=== PATIENT | female | born 1995 | race African-American/Black ===

== ENCOUNTER 2017-01-10 12:52 | Observation (INO) | payer MEDICAID ==
[~2017-01-10] VITALS: Ht 170.2 cm; Wt 105.0 kg
[~2017-01-10 12:52] MED LIST: ORTHTAB2 PO
[2017-01-10 12:55] VITALS: BP 128/95; PULSE 63; RESP 14; TEMP 98.8; O2SAT 100
[2017-01-10] MEDS ORDERED: SODIUM CHLORIDE 0.9% FLUSH 10 ML FLUSH IVF PRN (13:30)
--- NOTE | 2017-01-10 13:32 | PD ---
HPI Chief Complaint: Neuro Symptoms/ Deficits Time Seen by Provider: 13:15 Travel History International Travel<30 days: No Contact w/Intl Traveler<30days: No Traveled to known affect area: No History of Present Illness HPI This is a 21-year-old female who was referred here by white sugar boiler for evaluation of bilateral papilledema, left cranial nerve palsy. The patient reports that for the past 10-11 days she has had a stiff neck. Over the past 4- 5 days she has developed some numbness in her right second third and fourth fingers. She has developed some diplopia in the left eye over the past 2-3 days. She was referred today to Dr. Aime almanzar white sugar boiler who identified a left sixth cranial nerve palsy along with bilateral optic disks edema. She was referred here for further evaluation. The patient is denying any headache, fevers or chills, rash, upper respiratory symptoms, nausea or vomiting, abdominal pain. She has no other complaints at this time. PFSH Past Medical History Asthma: Yes (as a child) ?: Not : 0 Para: 0 Social History Alcohol Use: Yes Tobacco Use: No (patient admits to marijuana and using alcohol during this time ) Substance Use: Yes (no) Allergies-Medications (Allergen,Severity, Reaction): Coded Allergies: No Known Allergies (Unverified , 10/20/15) Reported Meds & Prescriptions Reported Meds & Active Scripts Active Ortho Tri-Cyclen (Norgestimate-Ethinyl Estradiol) Cyclen Tab 1 Tab PO DAILY Review of Systems Except as stated in HPI: all other systems reviewed are Neg Physical Exam Narrative GENERAL: Well-developed well-nourished female in no acute distress SKIN: Warm and dry. HEAD: Atraumatic. Normocephalic. EYES: Pupils equal and round dilated. Left eye esotropia is present. Visual acuity performed at ophthalmology office: od 20/25, os 20/200. ENT: No nasal bleeding or discharge. Mucous membranes pink and moist. NECK: Trachea midline. No JVD. CARDIOVASCULAR: Regular rate and rhythm. No murmur appreciated. RESPIRATORY: No accessory muscle use. Clear to auscultation. Breath sounds equal bilaterally. GASTROINTESTINAL: Abdomen soft, non-tender, nondistended. Hepatic and splenic margins not palpable. MUSCULOSKELETAL: No obvious deformities. No clubbing. No cyanosis. No edema. NEUROLOGICAL: Awake and alert. No obvious cranial nerve deficits. Motor grossly within normal limits. Normal speech. Normal finger to nose, rapid alternating movements, heel to sequeira. No clonus, negative Babinski, 5 out of 5 muscle strength in the upper and lower extremities. 1+ Achilles/patellar reflex bilaterally. Negative Kernig's, negative Brudzinski's. Neck is mildly stiff with flexion and extension. PSYCHIATRIC: Appropriate mood and affect; insight and judgment normal. Data Data Last Documented VS Vital Signs Date Time Temp Pulse Resp B/P Pulse Ox O2 Delivery O2 Flow Rate FiO2 01/10/17 13:38 98 Room Air 01/10/17 12:55 98.8 63 14 128/95 Orders Electrocardiogram (01/10/17 13:25) Prothrombin Time / Inr (Pt) (01/10/17 13:25) Act Partial Throm Time (Ptt) (01/10/17 13:25) Complete Blood Count With Diff (01/10/17 13:25) Comprehensive Metabolic Panel (01/10/17 13:25) Ct Brain W/O Iv Contrast(Rout) (01/10/17 13:25) Ecg Monitoring (01/10/17 13:25) Iv Access Insert/Monitor (01/10/17 13:25) Oximetry (01/10/17 13:25) Sodium Chloride 0.9% Flush (Ns Flush) (01/10/17 13:30) Ed Urine Pregnancytest Poc (01/10/17 13:25) Vital Signs (Adult) .On admission (01/10/17 14:39) Notify Radiology (01/10/17 14:39) Lumbar Puncture (01/10/17 ) Notify Radiology (01/10/17 14:44) Csf Cell Count + Differential (01/10/17 14:44) Glucose, Csf (01/10/17 14:44) Total Protein, Csf (01/10/17 14:44) Csf Culture And Gram Stain (01/10/17 14:44) Mri Brain W/O Contrast (01/10/17 ) Consult Neurology (01/10/17 ) Admit Order (Ed Use Only) (01/10/17 15:32) Labs Laboratory Tests Test 01/10/17 13:35 White Blood Count 10.2 TH/MM3 Red Blood Count 4.54 MIL/MM3 Hemoglobin 12.2 GM/DL Hematocrit 38.3 % Mean Corpuscular Volume 84.3 FL Mean Corpuscular Hemoglobin 27.0 PG Mean Corpuscular Hemoglobin 32.0 % Concent Red Cell Distribution Width 14.2 % Platelet Count 433 TH/MM3 Mean Platelet Volume 7.1 FL Neutrophils (%) (Auto) 52.6 % Lymphocytes (%) (Auto) 26.9 % Monocytes (%) (Auto) 9.8 % Eosinophils (%) (Auto) 10.0 % Basophils (%) (Auto) 0.7 % Neutrophils # (Auto) 5.4 TH/MM3 Lymphocytes # (Auto) 2.7 TH/MM3 Monocytes # (Auto) 1.0 TH/MM3 Eosinophils # (Auto) 1.0 TH/MM3 Basophils # (Auto) 0.1 TH/MM3 CBC Comment DIFF FINAL Differential Comment Prothrombin Time 10.8 SEC Prothromb Time International 1.0 RATIO Ratio Activated Partial 28.2 SEC Thromboplast Time Sodium Level 137 MEQ/L Potassium Level 3.7 MEQ/L Chloride Level 105 MEQ/L Carbon Dioxide Level 26.2 MEQ/L Anion Gap 6 MEQ/L Blood Urea Nitrogen 8 MG/DL Creatinine 0.79 MG/DL Estimat Glomerular Filtration 112 ML/MIN Rate Random Glucose 91 MG/DL Calcium Level 9.5 MG/DL Total Bilirubin 0.7 MG/DL Aspartate Amino Transf 12 U/L (AST/SGOT) Alanine Aminotransferase 17 U/L (ALT/SGPT) Alkaline Phosphatase 62 U/L Total Protein 8.5 GM/DL Albumin 3.9 GM/DL MDM Medical Decision Making Medical Screen Exam Complete: Yes Emergency Medical Condition: Yes Medical Record Reviewed: Yes Interpretation(s) Lab work unremarkable CT brain unremarkable Differential Diagnosis Pseudotumor cerebri, intracranial mass, meningitis, multiple sclerosis Narrative Course This is a 21-year-old female who for 1.5 weeks who has had stiff neck, 5-6 days of right hand numbness, 2-3 days of left eye double vision. She was found to have bilateral 2+ palpable edema as well as left cranial nerve palsy at the office of white sugar boiler Dr. Salomon today. Plan is for basic lab work, CT of the brain, neurology consultation. Laboratory and imaging studies been reviewed and found to be unremarkable. Therefore lumbar puncture has been ordered. I discussed with Dr. Archuleta, the neurologist on-call, who agrees with lumbar puncture, MRI of the brain, admission for further evaluation. A consultation has been placed to him. Discussed with Dr. Smith who is agreeable with admission. Diagnosis Primary Impression: Papilledema of both eyes Additional Impression: Palsy of left sixth cranial nerve on examination Admitting Information Admitting Physician Requests: Placido Salmeron Jan 10, 2017 13:31
[2017-01-10 13:51] LABS: AUTOMATED NEUTROPHIL # 5.4 TH/MM3 (1.8-7.7); BASOPHIL # 0.1 TH/MM3 (0-0.2); BASOPHIL % 0.7 % (0.0-2.0); HEMATOCRIT 38.3 % (35.0-46.0); HEMO FLAGS DIFF FINAL; LYMPH % 26.9 % (9.0-44.0); LYMPHOCYTE # 2.7 TH/MM3 (1.0-4.8); MEAN CELL VOLUME 84.3 FL (80.0-100.0); MONO % 9.8 % (0.0-8.0); NEUT % 52.6 % (16.0-70.0); PLATELET COUNT 433 TH/MM3 (150-450); RED BLOOD COUNT 4.54 MIL/MM3 (4.00-5.30); RED CELL DISTRIBUTION WIDTH 14.2 % (11.6-17.2); WHITE BLOOD COUNT 10.2 TH/MM3 (4.0-11.0)
[2017-01-10 13:58] LABS: APTT (PATIENT) 28.2 SEC (24.3-30.1); PROTHROMBIN TIME - PATIENT 10.8 SEC (9.8-11.6)
[2017-01-10 14:03] LABS: ANION GAP 6 MEQ/L (5-15); BICARBONATE 26.2 MEQ/L (21.0-32.0); BLOOD UREA NITROGEN 8 MG/DL (7-18); CHLORIDE 105 MEQ/L (98-107); GLOMERULAR FILTRATION RATE 112 ML/MIN (>89); POTASSIUM 3.7 MEQ/L (3.5-5.1); SODIUM (NA) 137 MEQ/L (136-145)
[2017-01-10 14:04] LABS: ALT (GPT) 17 U/L (9-42); AST (GOT) 12 U/L (16-38)
[2017-01-10 14:07] LABS: ALKALINE PHOSPHATASE 62 U/L (45-117); TOTAL BILIRUBIN ADULT 0.7 MG/DL (0.2-1.0)
--- NOTE | 2017-01-10 14:10 | RADRPT ---
EXAM DATE/TIME: 01/10/2017 13:45 [facility] COMPARISON: No previous studies available for comparison. INDICATIONS : Blurry vision and numbness in left eye. RADIATION DOSE: 39.90 CTDIvol (mGy) MEDICAL HISTORY : None SURGICAL HISTORY : None. ENCOUNTER: Initial ACUITY: 1 day PAIN SCALE: 2/10 LOCATION: cranial TECHNIQUE: Multiple contiguous axial images were obtained of the head. Using automated exposure control and adj ustment of the mA and/or kV according to patient size, radiation dose was kept as low as reasonably a chievable to obtain optimal diagnostic quality images. DICOM format image data is available electro nically for review and comparison. FINDINGS: CEREBRUM: The ventricles are normal for age. No evidence of midline shift, mass lesion, hemorrhage or acute in farction. No extra-axial fluid collections are seen. POSTERIOR FOSSA: The cerebellum and brainstem are intact. The 4th ventricle is midline. The cerebellopontine angle i s unremarkable. EXTRACRANIAL: The visualized portion of the orbits is intact. SKULL: The calvaria is intact. No evidence of skull fracture. CONCLUSION: No acute disease. Ahsan Capps MD on January 10, 2017 at 14:07 Board Certified Radiologist. This report was verified electronically.
[2017-01-10] MEDS ORDERED: NALOXONE HCL 0.4 MG/ML AMP IV PRN (15:45)
[2017-01-10] MEDS ORDERED: ONDANSETRON HCL 4 MG/2 ML VIAL IVP PRN (15:45)
[2017-01-10] MEDS ORDERED: SODIUM CHLORIDE 0.9% FLUSH 10 ML FLUSH IV FLUSH PRN (15:45)
--- NOTE | 2017-01-10 16:07 | HHI.HP ---
[facility] Service [facility] Primary Care Physician No Primary Care Physician Admission Diagnosis papilledema, left sixth cranial nerve palsy Diagnoses: Chief Complaint: Double vision. Travel History International Travel<30 Days: No Contact w/Intl Traveler <30 Da: No Traveled to Known Affected Are: No History of Present Illness 21 -year-old female presents emergency room after referral from sales person Dr. Salomon who found patient with bilateral papilledema along with its nerve palsy. Apparently, patient stated that she's had a 7 day history of double vision and was going to see her automotive welder today for her annual eye exam as she has a history of myopia and was sent to Dr. Salomon for further evaluation of her complaints. In addition, she denies any associated headaches. She denies any symptoms of weakness or numbness nor any difficulty with hearing or swallowing. She states that she may had some mild stiffness of her neck 10 days ago prior to having symptoms of her double vision. She states that she's been healthy up to this point. She denies taking any new medications. She has not had any symptoms of fevers or chills nor any symptoms of runny nose or any coughing. Review of Systems Constitutional: DENIES: Fatigue, Fever, Chills, Change in appetite Endocrine: DENIES: Heat/cold intolerance Eyes: COMPLAINS OF: Diplopia, Double Vision, DENIES: Blurred vision, Eye pain , Vision loss, Photosensitivity Ears, nose, mouth, throat: DENIES: Hearing loss, Nasal discharge, Throat pain, Ear Pain, Sinus Pain Respiratory: DENIES: Cough, Shortness of breath Cardiovascular: DENIES: Chest pain, Palpitations, Dyspnea on Exertion, Lower Extremity Edema Gastrointestinal: DENIES: Abdominal pain, Black stools, Bloody stools, Constipation, Diarrhea, Nausea, Vomiting Genitourinary: DENIES: Dysuria Musculoskeletal: DENIES: Joint pain, Muscle aches, Stiffness Integumentary: DENIES: Rash Hematologic/lymphatic: DENIES: Bruising, Lymphadenopathy Immunologic/allergic: DENIES: Eczema Neurologic: DENIES: Headache, Localized weakness, Paresthesias Psychiatric: DENIES: Anxiety, Depression, Suicidal Ideation Past Family Social History Past Medical History none Past Surgical History 1 Reported Medications Ortho Tri-Cyclen (Norgestimate-Ethinyl Estradiol) Cyclen Tab 1 Tab PO DAILY Allergies: Coded Allergies: No Known Allergies (Unverified , 10/20/15) Family History Mother had hypertension. Social History Does not smoke cigarettes or drink alcohol. Physical Exam Vital Signs Vital Signs Date Time Temp Pulse Resp B/P Pulse Ox O2 Delivery O2 Flow Rate FiO2 01/10/17 13:38 98 Room Air 01/10/17 12:55 98.8 63 14 128/95 100 Room Air Physical Exam GENERAL: This is a well-nourished, well-developed patient, in no apparent distress. SKIN: No rashes, ecchymoses or lesions. Cool and dry. HEAD: Atraumatic. Normocephalic. No temporal or scalp tenderness. EYES: Pupils equal round and reactive. Extraocular motions overall intact. No scleral icterus. No injection or drainage nor any redness. ENT: Nose without bleeding, purulent drainage or septal hematoma. Throat without erythema, tonsillar hypertrophy or exudate. Uvula midline. Airway patent. NECK: Trachea midline. No JVD or lymphadenopathy. Supple, nontender, no meningeal signs. CARDIOVASCULAR: Regular rate and rhythm without murmurs, gallops, or rubs. RESPIRATORY: Clear to auscultation. Breath sounds equal bilaterally. No wheezes , rales, or rhonchi. GASTROINTESTINAL: Abdomen soft, non-tender, nondistended. No hepato-splenomegaly , or palpable masses. No guarding. MUSCULOSKELETAL: Extremities without clubbing, cyanosis, or edema. No joint tenderness, effusion, or edema noted. No calf tenderness. Negative Homans sign bilaterally. NEUROLOGICAL: Awake and alert to person, place, time, and situation. Left eye cranial nerve palsy Motor and sensory grossly within normal limits. Five out of 5 muscle strength in all muscle groups. Normal speech. Laboratory Laboratory Tests Test 01/10/17 13:35 White Blood Count 10.2 Red Blood Count 4.54 Hemoglobin 12.2 Hematocrit 38.3 Mean Corpuscular Volume 84.3 Mean Corpuscular Hemoglobin 27.0 Mean Corpuscular Hemoglobin 32.0 Concent Red Cell Distribution Width 14.2 Platelet Count 433 Mean Platelet Volume 7.1 Neutrophils (%) (Auto) 52.6 Lymphocytes (%) (Auto) 26.9 Monocytes (%) (Auto) 9.8 Eosinophils (%) (Auto) 10.0 Basophils (%) (Auto) 0.7 Neutrophils # (Auto) 5.4 Lymphocytes # (Auto) 2.7 Monocytes # (Auto) 1.0 Eosinophils # (Auto) 1.0 Basophils # (Auto) 0.1 CBC Comment DIFF FINAL Differential Comment Prothrombin Time 10.8 Prothromb Time International 1.0 Ratio Activated Partial 28.2 Thromboplast Time Sodium Level 137 Potassium Level 3.7 Chloride Level 105 Carbon Dioxide Level 26.2 Anion Gap 6 Blood Urea Nitrogen 8 Creatinine 0.79 Estimat Glomerular Filtration 112 Rate Random Glucose 91 Calcium Level 9.5 Total Bilirubin 0.7 Aspartate Amino Transf 12 (AST/SGOT) Alanine Aminotransferase 17 (ALT/SGPT) Alkaline Phosphatase 62 Total Protein 8.5 Albumin 3.9 Result Diagram: 01/10/17 1335 01/10/17 1335 Imaging Last Impressions Head CT 01/10/17 1325 Signed Impressions: Service Date/Time: December 13:45 - CONCLUSION: No acute disease. Ahsan Capps MD Assessment and Plan Assessment and Plan 1. History of diplopia with referral from sales person for findings of bilateral papilledema and left 6 cranial nerve palsy- at this time will obtain a neurology consultation for further evaluation and workup. CT brain is negative. Obtain lumbar puncture due to history of subjective complaints of stiff neck although physical exam shows adequate range of motion. Rule out pseudotumor cerebri. MRI of the brain for further evaluation. Obtain a sedimentation rate. Further evaluation workup or recommendations from neurology. 2. DVT prophylaxispatient is currently low risk with caprini score <1 and no pharmaceutical or mechanical VTE prophylaxis to be ordered. Oly Smith MD Jan 10, 2017 16:06
--- NOTE | 2017-01-10 16:39 | PD.RAD ---
Post Procedure Progress Note Pre Procedure Diagnosis: (1) Papilledema of both eyes Post Procedure Diagnosis: (1) Papilledema of both eyes Procedure Date: Jan 10, 2017 Supervising Radiologist: Amrik Montemayor Proceduralist/Assist: Keerthi Vásquez, RT(R), Judy Roberts, RT(R)(CV) Anesthesia: Local Plan of Activity Patient to Unit: Nursing Unit Patient Condition: Good Additional Comments: High opening pressure of 52 cmH2O. Clsoing pressure of 8 cmH2O. See PACS Report for procedural detail/treatment Amrik Montemayor MD Jan 10, 2017 16:39
[2017-01-10] MEDS ORDERED: GADODIAMIDE PF 287 MG/ML 20 ML VIAL (for RAD MRI) IV ONE (17:13)
[2017-01-10 17:29] VITALS: BP 132/80; PULSE 78; RESP 18; O2SAT 98
[2017-01-10 17:43] LABS: GROSS BLOOD TUBE #1 0 (0); GROSS BLOOD TUBE #2 0 (0); GROSS BLOOD TUBE #3 0 (0); SUPERNATE COLOR TUBE #1 CLEAR (CLEAR); SUPERNATE COLOR TUBE #2 CLEAR (CLEAR); SUPERNATE COLOR TUBE #3 CLEAR (CLEAR); SUPERNATE COLOR TUBE #4 CLEAR (CLEAR); VOLUME TUBE # 3 6.5 ML; VOLUME TUBE # 4 7.5 ML
[2017-01-10 17:44] LABS: CSF LYMPHOCYTES 86 %; CSF MONOCYTES 9 %; CSF NEUTROPHILS 5 %; GROSS BLOOD TUBE #4 0 (0); WBC TUBE #4 2 /MM3 (0-10)
--- NOTE | 2017-01-10 17:46 | RADRPT ---
EXAM DATE/TIME: 01/10/2017 16:53 [facility] COMPARISON: No previous studies available for comparison. INDICATIONS : Nerve disorder. Diplopia. Cranial nerve six disorder. CONTRAST: 20 cc Omniscan (gadodiamide) IV MEDICAL HISTORY : None. SURGICAL HISTORY : section. ENCOUNTER: Initial ACUITY: 2 weeks PAIN SCORE: 0/10 LOCATION: Head. TECHNIQUE: Multiplanar, multisequence MRI of the brain was performed both prior to and following the administrat ion of paramagnetic contrast. FINDINGS: CEREBRUM: The ventricles are normal for age. No evidence of midline shift, mass lesion, hemorrhage or acute in farction. No extraaxial fluid collections are seen. The pituitary gland and suprasellar cistern are normal in configuration. WHITE MATTER: No significant signal abnormalities are seen in the white matter. POSTERIOR FOSSA: The cerebellum and brainstem are intact. The 4th ventricle is midline. The cerebellopontine angle is unremarkable. The cerebellar tonsils are normal in position. DIFFUSION IMAGING: No focal areas of restricted diffusion are seen. No evidence of acute infarction. EXTRACRANIAL: The visualized portions of the orbits and paranasal sinuses are unremarkable. POST-CONTRAST: No abnormal areas of parenchymal or dural enhancement. No evidence of blood-brain barrier breakdown. CONCLUSION: Normal examination. Jacob Sandy MD on January 10, 2017 at 17:41 Board Certified Radiologist. This report was verified electronically.
--- NOTE | 2017-01-10 20:00 | EKG ---
Date Performed: 01/10/2017 Time Performed: 14:12:03 PTAGE: 21 years EKG: Sinus rhythm NONSPECIFIC T-WAVE ABNORMALITY BORDERLINE ECG NO PREVIOUS TRACING DOCTOR: Toñito Evans Interpretating Date/Time 01/10/2017 19:59:33
[2017-01-10 20:41] VITALS: BP 137/80; PULSE 81; RESP 18; TEMP 98.5; O2SAT 98
--- NOTE | 2017-01-10 21:53 | MB ---
cc: LUKE HUFF DATE OF CONSULTATION: 01/10/2017 REASON FOR CONSULTATION Papilledema. HISTORY OF PRESENT ILLNESS This is a pleasant 21-year-old -[place] female who has had intermittent double vision. She was at the plastics engineer earlier today. Dr. Salomon evaluated her, found her to have bilateral papilledema and a sixth nerve palsy and she was referred the emergency room for further evaluation. PAST MEDICAL HISTORY She has a history of . MEDICATIONS Ortho Tri-Cyclen. ALLERGIES NONE KNOWN. SOCIAL HISTORY Denies alcohol use or tobacco use. NEUROLOGIC EXAMINATION VITAL SIGNS: Blood pressure is 137/80, pulse 81, respiratory rate is 18, temperature is 98.5 degrees. Higher cortical functions are normal. Cranial nerves: She has got a right cranial nerve sixth palsy, bilateral papilledema. Pupils equal and reactive. Other cranial nerves normal. Motor exam is normal with 5/5 strength of all groups. Sensory exam: She has got decreased sensation of right median nerve distribution. She does have a Tinel's at the right wrist. Reflexes are symmetric. IMAGING STUDIES MRI of the brain is normal. CT of the brain is normal. LABORATORY DATA The white count is 10,200, hemoglobin 12.2, hematocrit 38%, platelet count 433,000, sed rate is 16. PT 10.8, INR 1, APTT 28.2. Sodium is 137, potassium 3.7, chloride 105, CO2 26.2, the BUN is 8, creatinine 0.79, GFR is 112, glucose 91, AST 12, ALT 17. CSF analysis: 2 WBCs, 86 lymphocytes, 5% neutrophils, 9% monos, 2 RBCs, protein 20, glucose is 55. Opening pressure elevated at 52 cm of H20, closing pressure was reduced to 8 cm of H20. IMPRESSION Pseudotumor cerebri. RECOMMENDATIONS I would like to obtain an MR venogram of the brain with and without contrast to be sure there is no sign of venous sinus thrombosis. We will place the patient on Diamox. Also consult neurosurgery to evaluate the patient for possible shunting if necessary in the future. MD OLIMPIA Olivas/NATALI /9:12 PM /9:44 PM
[2017-01-10] MEDS: SODIUM CHLORIDE 0.9% FLUSH 10 ML FLUSH IV FLUSH SCH (22:12)
[2017-01-10] MEDS: acetaZOLAMIDE 250 MG TAB PO SCH (22:20)
[2017-01-11] VITALS (7 sets, daily range): BP systolic 102–143; BP diastolic 56–91; PULSE 75–96; RESP 15–22; TEMP 97.3–99; O2SAT 96–100
--- NOTE | 2017-01-11 07:51 | RADRPT ---
EXAM DATE/TIME: 01/10/2017 16:23 [facility] COMPARISON: No previous studies available for comparison. INDICATIONS : Patient is in need of a lumbar puncture for evalaution of CSF due to continuous eye pain and headache s. MEDICAL HISTORY : History of bilateral papilledema, left cranial nerve palsy. SURGICAL HISTORY : N/A ENCOUNTER: Initial ACUITY: 1 week PAIN SCORE: 4/10 LOCATION: head LUMBAR PUNCTURE TIME: 1618 hours FLUORO TIME: 0.30 minutes IMAGE SERIES: 0 ACCESS LEVEL: L2-3 OPENING PRESSURE: 52 cm of water CLOSING PRESSURE: 8 cm of water FLUID: 31 cc of clear CSF was collected and sent to the laboratory for analysis. PROCEDURE : 1. Fluoroscopic guided lumbar puncture. 2. Recording of opening pressure. The risks, benefits and alternatives to the procedure were explained and verbal and written consent w as obtained. The site was prepped in sterile fashion. Full sterile technique was used, including ca p, mask, sterile gloves and gown and a large sterile sheet. Hand hygiene and 2% chlorhexidine and/or betadine/alcohol prep was utilized per protocol for cutaneous antisepsis. The skin and subcutaneous tissues were infiltrated with local anesthetic solution. With fluoroscopic guidance the lumbar thecal sac was punctured at the above level described above and the opening pressure was recorded. The above described fluid was removed without difficulty. The patient tolerated the procedure well and there were no complications. CONCLUSION: Uncomplicated fluoroscopically guided lumbar puncture with pressures as above. Amrik Montemayor MD on January 11, 2017 at 7:49 Board Certified Radiologist. This report was verified electronically.
[2017-01-11] MEDS: SODIUM CHLORIDE 0.9% FLUSH 10 ML FLUSH IV FLUSH SCH ×2 (08:31→23:32)
[2017-01-11] MEDS: acetaZOLAMIDE 250 MG TAB PO SCH ×2 (08:31→23:32)
[2017-01-11] MEDS ORDERED: GADODIAMIDE PF 287 MG/ML 20 ML VIAL (for RAD MRI) IV ONE (09:54)
--- NOTE | 2017-01-11 10:40 | HHI.PR ---
Subjective Remarks Patient in bed, says she has back pain after LP. No headache, n/v/d/c. No fever or chills. Says no new change in vision. No motor or sensory deficit. Objective Vitals Vital Signs Date Time Temp Pulse Resp B/P Pulse Ox O2 Delivery O2 Flow Rate FiO2 01/11/17 08:06 98.5 90 17 114/70 99 01/11/17 05:26 97.8 76 18 119/74 96 01/11/17 00:14 98.5 75 22 141/74 100 01/10/17 20:41 98.5 81 18 137/80 98 01/10/17 17:29 78 18 132/80 98 01/10/17 13:38 98 Room Air 01/10/17 12:55 98.8 63 14 128/95 100 Room Air Result Diagram: 01/10/17 1335 01/10/17 1335 Imaging Last Impressions Head CT 01/10/17 1325 Signed Impressions: Service Date/Time: December 13:45 - CONCLUSION: No acute disease. Ahsan Capps MD Lumbar Puncture Fluoroscopy 01/10/17 0000 Signed Impressions: Service Date/Time: December 16:23 - CONCLUSION: Uncomplicated fluoroscopically guided lumbar puncture with pressures as above. Amrik Montemayor MD Brain MRI 01/10/17 0000 Signed Impressions: Service Date/Time: December 16:53 - CONCLUSION: Normal examination. Jacob Sandy MD Objective Remarks GENERAL: This is a well-nourished, well-developed patient, in no apparent distress. CARDIOVASCULAR: Regular rate and rhythm without murmurs, gallops, or rubs. RESPIRATORY: Clear to auscultation. Breath sounds equal bilaterally. No wheezes , rales, or rhonchi. GASTROINTESTINAL: Abdomen soft, non-tender, nondistended. No hepato-splenomegaly , or palpable masses. No guarding. MUSCULOSKELETAL: Extremities without clubbing, cyanosis, or edema. No joint tenderness, effusion, or edema noted. No calf tenderness. Negative Homans sign bilaterally. NEUROLOGICAL: Awake and alert to person, place, time, and situation. Left eye cranial nerve palsy Motor and sensory grossly within normal limits. Five out of 5 muscle strength in all muscle groups. Normal speech. A/P Assessment and Plan History of diplopia with referral from bariatric surgeon for findings of bilateral papilledema and left 6 cranial nerve palsy neurology consultation for further evaluation and workup. CT brain is negative MRI of the brain reviewed and normal S/P Lumbar puncture due to history of subjective complaints of stiff neck although physical exam shows adequate range of motion. Rule out pseudotumor cerebri. . CSF reviewed and normal. Sedimentation rate normal Further evaluation workup or recommendations from neurology, appreciate recommendations. Plan for MR venogram of the brain with and without contrast to r/o venous sinus thrombosis. Started Diamox. Consult neurosurgery for eval of poss shunting DVT prophylaxispatient is currently low risk with caprini score <1 and no pharmaceutical or mechanical PE prophylaxis to be ordered. Discussed with the patient. nurse. Nathaly Mendoza MD Jan 11, 2017 10:40
--- NOTE | 2017-01-11 12:30 | RADRPT ---
EXAM DATE/TIME: 01/11/2017 09:39 COMPARISON: MRI BRAIN W & W/O CONTRAST, January 10, 2017, 16:53. INDICATIONS : Diplopia. Left eye wandering times 1 week. CONTRAST: 20 cc Omniscan (gadodiamide) IV MEDICAL HISTORY : None. SURGICAL HISTORY : section. ENCOUNTER: Initial ACUITY: 2 weeks PAIN SCORE: 4/10 LOCATION: head FINDINGS: There is good visualization of the deep and superficial cervical veins. There is no thrombosis. CONCLUSION: Negative for thrombosis. Cory Al MD FACR on January 11, 2017 at 12:27 Board Certified Radiologist. This report was verified electronically.
[2017-01-11] MEDS ORDERED: ACETAMINOPHEN/HYDROcodone 325 MG/5 MG TAB PO PRN (14:15)
[2017-01-11] MEDS ORDERED: ACETAMINOPHEN 325 MG TAB PO PRN (16:00)
--- NOTE | 2017-01-11 16:34 | HHI.PR ---
Review/Management Diagnosis pseudotumor cerebri Plan continue diamox neurosurgery consult ok to discharge if cleared by neurosurgery with follow up with me in 1 week and ophthalmology in 1 week Diagnosis/Plan: Subjective Subjective Comments No acute events reported denies vision changes or headaches Active Medications Current Medications Medications (Trade) Dose Ordered Sig/Carlin Route Start Time Stop Time Status Last Admin (NS Flush) 2 ml UNSCH PRN IV FLUSH 01/10/17 15:45 (NS Flush) 2 ml BID IV FLUSH 01/10/17 21:00 01/11/17 08:31 (Zofran Inj) 4 mg Q6H PRN IVP 01/10/17 15:45 (Narcan Inj) 0.4 mg UNSCH PRN IV 01/10/17 15:45 (Diamox) 250 mg Q12HR PO 01/10/17 21:15 01/11/17 08:31 ([place] 5-325 Mg) 1 tab Q4H PRN PO 01/11/17 14:15 01/11/17 14:40 (Tylenol) 650 mg Q4H PRN PO 01/11/17 16:00 Allergies Allergies Coded Allergies No Known Allergies (Unverified10/20/15) Exam I&O / VS 01/10/17 01/10/17 01/11/17 15:00 23:00 07:00 # Voids 1 Vital Signs Date Time Temp Pulse Resp B/P Pulse Ox O2 Delivery O2 Flow Rate FiO2 01/11/17 15:36 99.0 90 17 122/74 99 01/11/17 11:10 97.8 90 15 143/91 100 01/11/17 08:06 98.5 90 17 114/70 99 01/11/17 05:26 97.8 76 18 119/74 96 01/11/17 00:14 98.5 75 22 141/74 100 01/10/17 20:41 98.5 81 18 137/80 98 01/10/17 17:29 78 18 132/80 98 Exam Comments alert, speech normal visual wallace normal right cn 6 palsey motor--5/5 bue and ble Objective Radiology Results MR venogram--normal with no evidence of venous sinus thrombosis Micro and Labs Date/Time Procedure Status Source Growth 01/10/17 16:20 Gram Stain - Final Resulted Cerebral Spinal Fluid Lumbar Puncture 01/10/17 16:20 CSF Culture - Preliminary Resulted Cerebral Spinal Fluid Lumbar Puncture NO GROWTH IN 24 HOURS. Ran Archuleta PhD Jan 11, 2017 16:34
[2017-01-12 04:19] VITALS: BP 99/52; PULSE 89; RESP 20; TEMP 98.3; O2SAT 99
[2017-01-12 05:31] VITALS: BP 101/62; PULSE 96; O2SAT 100
[2017-01-12] MEDS: acetaZOLAMIDE 250 MG TAB PO SCH (08:23)
[2017-01-12] MEDS: SODIUM CHLORIDE 0.9% FLUSH 10 ML FLUSH IV FLUSH SCH (08:23)
[2017-01-12 08:25] VITALS: BP 130/56; PULSE 97; RESP 18; TEMP 97.9; O2SAT 96
--- NOTE | 2017-01-12 09:59 | HHI.PR ---
Subjective Remarks Follow-up for pseudotumor cerebri. The patient feels improved after lumbar puncture. She denies any headache or pain. She's been ambulating with no reported unsteadiness. She denies any vision changes. Neurosurgery consultation pending. Objective Vitals Vital Signs Date Time Temp Pulse Resp B/P Pulse Ox O2 Delivery O2 Flow Rate FiO2 01/12/17 08:25 97.9 97 18 130/56 96 01/12/17 05:31 96 101/62 100 01/12/17 04:19 98.3 89 20 99/52 99 01/11/17 23:50 98.2 80 19 102/56 100 01/11/17 19:28 97.3 96 18 117/66 99 01/11/17 15:36 99.0 90 17 122/74 99 01/11/17 11:10 97.8 90 15 143/91 100 I/O 01/11/17 01/11/17 01/11/17 01/12/17 01/12/17 01/12/17 07:00 15:00 23:00 07:00 15:00 23:00 Intake Total 960 ml 240 ml Balance 960 ml 240 ml Intake Oral 960 ml 240 ml # Voids 2 1 Result Diagram: 01/10/17 1335 01/10/17 1335 Imaging Last Impressions Head/Brain Mag Res Venography 01/11/17 0000 Signed Impressions: Service Date/Time: Wednesday, January 11, 2017 09:39 - CONCLUSION: Negative for thrombosis. Cory Al MD FACR Head CT 01/10/17 1325 Signed Impressions: Service Date/Time: December 13:45 - CONCLUSION: No acute disease. Ahsan Capps MD Lumbar Puncture Fluoroscopy 01/10/17 0000 Signed Impressions: Service Date/Time: December 16:23 - CONCLUSION: Uncomplicated fluoroscopically guided lumbar puncture with pressures as above. Amrik Montemayor MD Brain MRI 01/10/17 0000 Signed Impressions: Service Date/Time: December 16:53 - CONCLUSION: Normal examination. Jacob Sandy MD Objective Remarks GENERAL: Well-developed well-nourished. Obese. In no acute distress. SKIN: Warm and dry. No lesions noted. HEENT: Normocephalic. Pupils equal and round. EOMs intact. Mucous membranes pink and moist. CARDIOVASCULAR: Regular rate and rhythm. No murmur appreciated. RESPIRATORY: No accessory muscle use. Clear to auscultation. Breath sounds equal bilaterally. GASTROINTESTINAL: Abdomen soft, non-tender, nondistended. Bowel sounds x4. MUSCULOSKELETAL: No obvious deformities. No clubbing or cyanosis. No edema. NEUROLOGICAL: Awake and alert. No focal neurological deficits. Moves upper and lower extremities spontaneously. Normal speech. Strength 5/5. PSYCHIATRIC: Appropriate mood and affect; insight and judgment normal. A/P Assessment and Plan 21-year-old female with no significant past medical history who was sent from tool and die inspector for papilledema and cranial nerve palsy Pseudotumor cerebri: Brain imaging was negative. Lumbar puncture showed opening pressure 52, decreased 8 after CSF removed. CSF fluid studies clear. Neurology was consulted, started Diamox, and requested neurosurgery evaluation. Neurosurgery evaluation pending. DVT prophylaxis: Low risk, ambulatory. Discharge Planning Cleared from neurology perspective after neurosurgery clearance. Follow-up neurosurgery recommendations. Possible discharge planning if cleared by neurosurgery. Joel Jeff Jan 12, 2017 09:59
[2017-01-12 11:51] VITALS: BP 130/68; PULSE 90; RESP 20; TEMP 98; O2SAT 95
[2017-01-12] MEDS ORDERED: ACET250T3 PO (12:16)
--- NOTE | 2017-01-12 12:18 | HHI.DS ---
Discharge Summary Admission Date Jan 10, 2017 at 15:34 Discharge Date: Jan 12, 2017 Admitting Diagnosis papilledema, left sixth cranial nerve palsy (1) Pseudotumor cerebri ICD Code: G93.2 Diagnosis: Principal (2) Papilledema of both eyes ICD Code: H47.10 Diagnosis: Principal (3) Palsy of left sixth cranial nerve on examination ICD Code: H49.22 Diagnosis: Principal Procedures Lumbar puncture 01/10/17 Brief History - From Admission 21 -year-old female presents emergency room after referral from sales product specialist Dr. Salomon who found patient with bilateral papilledema along with its nerve palsy. Apparently, patient stated that she's had a 7 day history of double vision and was going to see her repairer wood furniture today for her anal eye exam as she has a history of myopia and was sent to Dr. Echeverria for further evaluation of her complaints. In addition she denies any associated headaches. She denies any symptoms of weakness or numbness nor any difficulty with hearing or swallowing. She states that she may had some mild stiffness of her neck 10 days ago prior to having symptoms of her double vision. She states that she's been healthy up to this point. She denies taking any new medications. She has not had any symptoms of fevers or chills nor any symptoms of runny nose or any coughing. CBC/BMP: 01/10/17 1335 01/10/17 1335 Significant Findings Laboratory Tests Test 01/10/17 01/10/17 13:35 16:20 Monocytes (%) (Auto) 9.8 % (0.0-8.0) Eosinophils (%) (Auto) 10.0 % (0.0-4.0) Monocytes # (Auto) 1.0 TH/MM3 (0-0.9) Eosinophils # (Auto) 1.0 TH/MM3 (0-0.4) Aspartate Amino Transf 12 U/L (16-38) (AST/SGOT) Total Protein 8.5 GM/DL (6.4-8.2) CSF RBC (Tube 4) 2 /MM3 (NONE) Imaging Last Impressions Head/Brain Mag Res Venography 01/11/17 0000 Signed Impressions: Service Date/Time: Wednesday, January 11, 2017 09:39 - CONCLUSION: Negative for thrombosis. Cory Al MD FACR Head CT 01/10/17 1325 Signed Impressions: Service Date/Time: December 13:45 - CONCLUSION: No acute disease. Ahsan Capps MD Lumbar Puncture Fluoroscopy 01/10/17 0000 Signed Impressions: Service Date/Time: December 16:23 - CONCLUSION: Uncomplicated fluoroscopically guided lumbar puncture with pressures as above. Amrik Montemayor MD Brain MRI 01/10/17 0000 Signed Impressions: Service Date/Time: December 16:53 - CONCLUSION: Normal examination. Jacob Sandy MD PE at Discharge GENERAL: Well-developed well-nourished. Obese. In no acute distress. SKIN: Warm and dry. No lesions noted. HEENT: Normocephalic. Pupils equal and round. EOMs intact. Mucous membranes pink and moist. CARDIOVASCULAR: Regular rate and rhythm. No murmur appreciated. RESPIRATORY: No accessory muscle use. Clear to auscultation. Breath sounds equal bilaterally. GASTROINTESTINAL: Abdomen soft, non-tender, nondistended. Bowel sounds x4. MUSCULOSKELETAL: No obvious deformities. No clubbing or cyanosis. No edema. NEUROLOGICAL: Awake and alert. No focal neurological deficits. Moves upper and lower extremities spontaneously. Normal speech. Strength 5/5. PSYCHIATRIC: Appropriate mood and affect; insight and judgment normal. Pt update on day of discharge Discussed with Dr. Edward, who has evaluated the patient. Patient cleared from neurosurgery perspective for discharge. Hospital Course 1-year-old female with no significant past medical history who was sent from sales product specialist for papilledema and cranial nerve palsy Pseudotumor cerebri: Brain imaging was negative. Lumbar puncture showed opening pressure 52, decreased 8 after CSF removed. CSF fluid studies clear. Neurology was consulted, started Diamox, and requested neurosurgery evaluation. Neurosurgery consulted, recommended outpatient follow-up. Pt Condition on Discharge: Stable Discharge Disposition: Discharge Home Discharge Time: > 30 minutes Discharge Instructions DIET: Follow Instructions for: As Tolerated, No Restrictions Activities you can perform: Regular-No Restrictions Follow up Referrals: Neurology - 2 Weeks with Ran Archuleta PhD MD Neurosurgery - 2 Weeks @ [facility] with Austin Edward MD PCP Follow-up - 1 Week New Medications: Acetazolamide (Acetazolamide) 250 Mg Tab 250 MG PO Q12HR pseudotumor cerebri #60 TAB Continued Medications: Norgestimate-Ethinyl Estradiol (Ortho Tri-Cyclen) Cyclen Tab 1 TAB PO DAILY #1 Ref 11 Joel Nguyen Jan 12, 2017 12:18
--- NOTE | 2017-01-12 16:51 | PD.CONS ---
[facility] Service nEUROSURGERY Consult Requested By Dr Archuleta Reason for Consult Spseudotumor cerebri Primary Care Physician No Primary Care Physician History of Present Illness This is a 21 -year-old female who presents emergency room after referral from wood handler Dr. Salomon who found patient with bilateral papilledema and a nerve palsy. Apparently, she had a 7 day history of double vision and was going to see her slat pickler today for her anal eye exam as she has a history of myopia and was sent to Dr. Salomon for further evaluation. She denies any associated headaches. She denies any symptoms of weakness or numbness nor any difficulty with hearing or swallowing. She states that she may had some mild stiffness of her neck 10 days ago prior to having symptoms of her double vision. She states that she's been healthy up to this point. She denies taking any new medications. She has not had any symptoms of fevers or chills nor any symptoms of runny nose or any coughing. Dr Hernandez was consulted 01/10 at 2010, but the patient was never seen. I was consulted again today. She had an LP with opening pressure of 50,, H20. Closing pressure was 8cm H20. Her cranial nerve palsy resolved. Neurosurg. consultation was requested. Review of Systems Constitutional: DENIES: Fatigue, Fever, Chills, Change in appetite Endocrine: DENIES: Heat/cold intolerance Eyes: COMPLAINS OF: Diplopia, Double Vision, DENIES: Blurred vision, Eye pain , Vision loss, Photosensitivity Ears, nose, mouth, throat: DENIES: Hearing loss, Nasal discharge, Throat pain, Ear Pain, Sinus Pain Respiratory: DENIES: Cough, Shortness of breath Cardiovascular: DENIES: Chest pain, Palpitations, Dyspnea on Exertion, Lower Extremity Edema Gastrointestinal: DENIES: Abdominal pain, Black stools, Bloody stools, Constipation, Diarrhea, Nausea, Vomiting Genitourinary: DENIES: Dysuria Musculoskeletal: DENIES: Joint pain, Muscle aches, Stiffness Integumentary: DENIES: Rash Hematologic/lymphatic: DENIES: Bruising, Lymphadenopathy Immunologic/allergic: DENIES: Eczema Neurologic: DENIES: Headache, Localized weakness, Paresthesias Psychiatric: DENIES: Anxiety, Depression, Suicidal Ideation PFSH Past Family Social History Past Family Social History Allergies: Coded Allergies: No Known Allergies (Unverified , 10/20/15) Past Medical History none Past Surgical History 1 Reported Medications Ortho Tri-Cyclen (Norgestimate-Ethinyl Estradiol) Cyclen Tab 1 Tab PO DAILY Active Ordered Medications Current Medications Sodium Chloride (NS Flush) 2 ml UNSCH PRN IVF FLUSH AFTER USING IV ACCESS; Start 01/10/17 at 13:30; Stop 01/10/17 at 16:26; Status DC Sodium Chloride (NS Flush) 2 ml UNSCH PRN IV FLUSH FLUSH AFTER USING IV ACCESS ; Start 01/10/17 at 15:45; Stop 01/12/17 at 14:17; Status DC Sodium Chloride (NS Flush) 2 ml BID IV FLUSH Last administered on 01/12/17 08: 23; Start 01/10/17 at 21:00; Stop 01/12/17 at 14:17; Status DC Ondansetron HCl (Zofran Inj) 4 mg Q6H PRN IVP NAUSEA OR VOMITING; Start at 15:45; Stop 01/12/17 at 14:17; Status DC Naloxone HCl (Narcan Inj) 0.4 mg UNSCH PRN IV SEE LABEL COMMENTS; Start at 15:45; Stop 01/12/17 at 14:17; Status DC Gadodiamide (Omniscan Pf Inj) 20 ml STK-MED ONCE IV Last administered on 17:13; Start 01/10/17 at 17:13; Stop 01/10/17 at 17:14; Status DC Acetazolamide (Diamox) 250 mg Q12HR PO Last administered on 01/12/17 08:23; Start 01/10/17 at 21:15; Stop 01/12/17 at 14:17; Status DC Gadodiamide (Omniscan Pf Inj) 20 ml STK-MED ONCE IV Last administered on 09:54; Start 01/11/17 at 09:54; Stop 01/11/17 at 09:55; Status DC Acetaminophen/ Hydrocodone Bitart ([place] 5-325 Mg) 1 tab Q4H PRN PO pain 2-10 Last administered on 01/11/17t 14:40; Start 01/11/17 at 14:15; Stop 01/12/17 at 14:18; Status DC Acetaminophen (Tylenol) 650 mg Q4H PRN PO fever/headache/PAIN 1-2; Start at 16:00; Stop 01/12/17 at 14:18; Status DC Family History Mother had hypertension. Social History Does not smoke cigarettes or drink alcohol. Physical Exam Vital Signs Vital Signs Date Time Temp Pulse Resp B/P Pulse Ox O2 Delivery O2 Flow Rate FiO2 01/12/17 11:51 98.0 90 20 130/68 95 01/12/17 08:25 97.9 97 18 130/56 96 01/12/17 05:31 96 101/62 100 01/12/17 04:19 98.3 89 20 99/52 99 01/11/17 23:50 98.2 80 19 102/56 100 01/11/17 19:28 97.3 96 18 117/66 99 Physical Exam The patient is alert, awake and oriented to time, place and person. Speech is fluent. Higher cognitive functions are normal. Cranial nerve examination demonstrates the pupils to be equal, round, and reactive to light. Extra-ocular movements are intact. Facial motor and sensory function are normal and symmetrical. Gross hearing is intact, bilaterally. The uvula is midline and elevates symmetrically with the soft palate. Sternocleidomastoid and trapezius muscles have normal and symmetrical strength. Other cranial nerves are intact. Neck is soft and supple. Cervical spine has a full range of motion in anterior flexion, extension, lateral bending, and rotation without pain. There is no tenderness to palpation to the spinous processes or paraspinal muscles. Muscle testing reveals normal bulk and tone overall without rigidity, spasticity , fasciculations, or atrophy. Muscle strength is 5/5 in all muscle groups of both upper extremities including deltoid, biceps, triceps, brachioradialis, wrist extension and associate art director. In the lower extremities, strength is 5/5 in both iliopsoas, quadriceps, hamstrings, plantar flexion, dorsiflexion, and extensor hallicus longus. Sensory examination is intact to light touch and sharp/dull discrimination in both the upper and lower extremities, symmetrically. Deep tendon reflexes are 2+ and symmetrical in the biceps, triceps, and brachioradialis, bilaterally, in the upper extremities. In the lower extremities , the patellar and Achilles are 2+, bilaterally. There is a bilateral plantar flexion response. Hoffmanns sign is negative. There is no clonus or other abnormal reflexes noted. Cerebellar examination is intact to [id number] test, rapid rhythmic alternating motion. There is no dysmetria, dysdiadochokinesia, truncal ataxia, or tremor. Laboratory Date/Time Procedure Status Source Growth 01/10/17 16:20 Gram Stain - Final Resulted Cerebral Spinal Fluid Lumbar Puncture 01/10/17 16:20 CSF Culture - Preliminary Resulted Cerebral Spinal Fluid Lumbar Puncture NO GROWTH IN 48 HOURS. Result Diagram: 01/10/17 1335 01/10/17 1335 Imaging Last Impressions Head/Brain Mag Res Venography 01/11/17 0000 Signed Impressions: Service Date/Time: Wednesday, January 11, 2017 09:39 - CONCLUSION: Negative for thrombosis. Cory Al MD FACR Head CT 01/10/17 1325 Signed Impressions: Service Date/Time: December 13:45 - CONCLUSION: No acute disease. Ahsan Capps MD Lumbar Puncture Fluoroscopy 01/10/17 0000 Signed Impressions: Service Date/Time: December 16:23 - CONCLUSION: Uncomplicated fluoroscopically guided lumbar puncture with pressures as above. Amrik oMntemayor MD Brain MRI 01/10/17 0000 Signed Impressions: Service Date/Time: December 16:53 - CONCLUSION: Normal examination. Jacob Sandy MD Attending Statement Her blurred vision resolved. Cranial nerve palsy resolved. Recommend medical treatment. She may benefit by Diamox. She is stable per neurosurgical standpoint for discharge. SHe may benefit by outpatient evaluation at a terciary center, as psudotumor cerebri is not within my scope Austin Edward MD Jan 12, 2017 16:51
== END 2017-01-12 14:17 | disposition home or self-care (01) ==
LOC: NEPE 12:52 → NEDA 15:34 → NEPGCP 18:18
PROVIDERS: ADMIT Hospitalist; ATTEND Hospitalist
DX: H53.2 Diplopia (principal); H49.20 Sixth [abducent] nerve palsy, unspecified eye; G93.2 Benign intracranial hypertension; M43.6 Torticollis; R20.0 Anesthesia of skin; H53.8 Other visual disturbances; R60.0 Localized edema; M54.9 Dorsalgia, unspecified
CPT/HCPCS: 62270; 70450; 70546; 70553; 77003; 80053; 82945; 84157; 84703; 85025; 85610; 85652; 85730; 87070; 87205; 89051; 93005; 99285; A9579; G0378